=== PATIENT | male | born 2005 | race American Indian/Alaskan Native ===

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

== ENCOUNTER 2023-04-28 16:05 | Emergency (ER) | payer MEDICAID ==
[~2023-04-28] VITALS: Ht 188 cm; Wt 97.6 kg
[2023-04-28] MEDS ORDERED: cyclobenzaprine 10mg tablet PO ONE (18:35)
[2023-04-28] MEDS ORDERED: ketorolac trometh. 30mg/ml inj. IV ONE (18:35)
[2023-04-28] MEDS ORDERED: methylPREDNISolone sod succ 125mg/2ml vial IV ONE (18:35)
--- NOTE | 2023-04-28 18:39 | NUR ---
IV MEDICATION SWITCHED TO IM ROUTE PER PHOENIX MARTINEZ
[2023-04-28] MEDS ORDERED: ketorolac trometh. 30mg/ml inj. IM ONE (18:40)
[2023-04-28] MEDS ORDERED: methylPREDNISolone sod succ 125mg/2ml vial IM ONE (18:40)
[2023-04-28] MEDS ORDERED: METH-798 PO (18:45)
[2023-04-28] MEDS ORDERED: NAPR-56 PO (18:45)
[2023-04-28 19:05] VITALS: BP 128/76; PULSE 62; RESP 16; TEMP 97.6; O2SAT 99
== END 2023-04-28 19:09 | disposition home or self-care (01) ==
LOC: ER 16:06
DX: M43.6 Torticollis (principal)
CPT/HCPCS: 96372; 99284; J1885; J2930

== ENCOUNTER 2023-06-18 14:52 | Emergency (ER) | payer MEDICAID ==
[~2023-06-18] VITALS: Ht 190.5 cm; Wt 93.0 kg
[~2023-06-18 14:52] MED LIST: METH-798 PO
[2023-06-18 14:58] VITALS: BP 173/105; PULSE 111; RESP 16; TEMP 98.6; O2SAT 100
== END 2023-06-18 15:13 | disposition home or self-care (01) ==
LOC: ER 14:53
DX: J02.9 Acute pharyngitis, unspecified (principal)
CPT/HCPCS: 99281